=== PATIENT | female | born 1950 | race Asian ===

== ENCOUNTER 2021-11-22 14:33 | Outpatient (CLI) | payer MEDICARE, SELFPAY ==
[2021-11-22 15:26] LABS: Appearance Urine Clear (Clear); Bilirubin Urine Negative (Negative); Blood Urine Negative (Negative); Color Urine Yellow (Yellow); Glucose Urine Negative (Negative); Ketones Urine Negative (Negative); Leukocyte Esterase Urine Trace (Negative); Nitrite Urine Positive (Negative); Protein Urine Negative (Negative); Specific Gravity Urine 1.025 (1.000-1.030); Urobilinogen Urine 0.2 (0.2-1.0)
[2021-11-22 15:35] LABS: RBC Urine 0-2 (0-2); Squamous Epithelial Cell Urine Few (None-Few)
[2021-11-22 15:36] LABS: Bacteria Urine Moderate
== END 2021-11-22 14:34 | disposition home or self-care (01) ==
LOC: NFLDREF 14:34
PROVIDERS: PCP Physician Assistant Medical; Visit Provider Physician Assistant
DX: N39.41 Urge incontinence (principal); N39.0 Urinary tract infection, site not specified
CPT/HCPCS: 81003; 81015; 87086; 87186

== ENCOUNTER 2022-03-11 12:51 | Outpatient (CLI) | payer MEDICARE, SELFPAY | END 2022-03-11 12:52 | disposition home or self-care (01) | LOC: FRMREF 03-21 14:47 | PROVIDERS: PCP Physician Assistant Medical; Visit Provider Physician Assistant Medical | DX: R35.0 Frequency of micturition (principal); N39.0 Urinary tract infection, site not specified | CPT/HCPCS: 87086; 87186 ==